=== PATIENT | female | born 1995 | race Caucasian/White ===

== ENCOUNTER 2020-05-16 10:43 | Observation (INO) ==
[2020-05-16] MEDS ORDERED: LACTATED RINGER'S 500 ML IV ONE (11:47)
[2020-05-16 12:19] LABS: Basophils # (auto) 0.01 K/uL (0-0.2); Basophils % (auto) 0.1 %; Eosinophils # (auto) 0.04 K/uL (0-0.5); Eosinophils % (auto) 0.4 %; Hematocrit (blood only) 32.3 % (37-47); Hemoglobin 10.2 g/dL (12.0-16.0); Immature Granulocytes # (auto) 0.06 K/uL (0.00-0.02); Immature Granulocytes % (auto) 0.6 %; Lymphocytes # (auto) 1.41 K/uL (1.2-3.4); Lymphocytes % (auto) 14.3 %; Mean Corpuscular Hemoglobin 25.3 pg (25-34); Mean Corpuscular Hgb Conc 31.6 g/dL (32-36); Mean Corpuscular Volume 80.1 fL (80-100); Mean Platelet Volume 10.5 fL (7.4-10.4); Monocytes # (auto) 0.66 K/uL (0.11-0.59); Monocytes % (auto) 6.7 %; Neutrophils # (auto) 7.69 K/uL (1.4-6.5); Neutrophils % (auto) 77.9 %; Platelet Count 185 K/uL (130-400); RDW Coefficient of Variation 15.5 % (11.5-14.5); RDW Standard Deviation 45.9 fL (36.4-46.3); Red Blood Count 4.03 M/uL (4.2-5.4); White Blood Count 9.87 K/uL (4.8-10.8)
[2020-05-16] MEDS ORDERED: TERBUTALINE SULFATE 1 MG/ML VIAL SQ ONE ×2 (12:56→13:58)
[2020-05-16] MEDS ORDERED: BETAMETH SOD PHOS/ACETATE IA 6 MG/ML IM STA (13:58)
[2020-05-16 14:44] LABS: Appearance Urine Clear (Clear); Bilirubin Urine Negative (Negative); Blood Urine Negative (Negative); Color Urine Yellow; Glucose Urine UA Negative (Negative); Ketones Urine 1+ (Negative); Leukocyte Esterase Urine Negative (Negative); Nitrite Urine Negative (Negative); Protein Urine Negative (Negative); Specific Gravity Urine 1.007 (1.000-1.030); Urobilinogen Urine Negative (Negative)
[2020-05-16] MEDS ORDERED: MAG SULFATE 4GM BOLUS FROM BAG IV ONE (15:02)
--- NOTE | 2020-05-16 15:32 | Progress Note ---
Date of Service May 16, 2020 Subjective Pt is s/p twin gestation @ 33 + weeks seen in the office for ctx sent to L&D for eval On arrival FHR was CAT1 x2 ctx 2-3min VE' closed/ no effacement /post Pt received IVH, followed by 2 doses of Turb. pt continues to ctx discussed magnesium and BMTX with pt pt has agreed Results & Data ([facility]) Vital Signs (Past 12 Hours) Vital Signs Temp Pulse Resp BP 05/16/20 14:29 100 H 108/65 05/16/20 11:07 36.9 C 20
[2020-05-16] MEDS: MAGNESIUM SULFATE / WTR 40 GM/1,000 ML BAG IV SCH (15:33)
[2020-05-16 15:51] LABS: Albumin Globulin Ratio 0.5 (0.9-2); Albumin Level 2.2 gm/dl (3.4-5.0); BUN Creatinine Ratio 6.4 (10-20); Bilirubin,Total 0.4 mg/dl (0.2-1); Calcium 8.7 mg/dl (8.5-10.1); Creatinine Clr Calc Pharmacy 113.4 ml/min; Est GFR (African American) 141.5; Est GFR (Non-African American) 122.1; Globulin 4.2 gm/dl (2.5-4.0); Potassium 2.6 mmol/L (3.5-5.1); Total Protein 6.4 gm/dl (6.4-8.2)
[2020-05-16] MEDS: LACTATED RINGER'S 1,000 ML IV PRN (15:53)
--- NOTE | 2020-05-16 19:43 | Progress Note ---
Date of Service May 16, 2020 Subjective Improved ctx on magnesium Pt received 1st dose of BMTX plan continue magnesium for 24 hrs 2nd dose of BMTx will be given 24hr after 1st Results & Data ([facility]) Vital Signs (Past 12 Hours) Vital Signs Temp Pulse Resp BP 05/16/20 19:03 36.8 C 18 05/16/20 18:56 104 H 110/69 05/16/20 18:32 20 05/16/20 17:56 116 H 129/77 05/16/20 17:39 110 H 128/80 05/16/20 17:30 20 05/16/20 17:23 120 H 110/58 L 05/16/20 17:10 115 H 119/71 05/16/20 16:55 118 H 120/68 05/16/20 16:39 125 H 113/74 05/16/20 16:30 20 05/16/20 16:24 122 H 122/73 05/16/20 16:08 120 H 114/67 05/16/20 15:53 129 H 115/75 05/16/20 15:39 120 H 121/79 05/16/20 15:35 115 H 108/66 05/16/20 15:00 36.9 C 20 05/16/20 14:29 100 H 108/65 05/16/20 11:07 36.9 C 20
[2020-05-17] MEDS ORDERED: MAG SULFATE 4GM BOLUS FROM BAG IV ONE (02:43)
--- NOTE | 2020-05-17 02:47 | Progress Note ---
Date of Service May 17, 2020 Assessment & Plan Admission and Anticipated Discharge Date Admission Date: May 16, 2020 Subjective Pt has sudden increase in ctx FHR 'CAT1 VE; Unchanged will give magnesium bolus discussed with pt pt agrees Results & Data ([facility]) Vital Signs (Past 12 Hours) Vital Signs Temp Pulse Resp BP Pulse Ox 05/17/20 02:43 108 H 100 05/17/20 02:38 100 H 100 05/17/20 02:33 94 H 100 05/17/20 02:30 18 05/17/20 02:28 98 H 100 05/17/20 02:23 100 H 100 05/17/20 02:19 114 H 93 05/17/20 02:18 113 H 99 05/17/20 02:13 102 H 99 05/17/20 02:08 102 H 100 05/17/20 02:03 102 H 100 05/17/20 02:00 18 05/17/20 01:58 103 H 100 05/17/20 01:57 98 H 113/71 05/17/20 01:53 100 H 100 05/17/20 01:48 109 H 100 05/17/20 01:43 106 H 100 05/17/20 01:38 108 H 100 05/17/20 01:35 108 H 91 05/17/20 01:33 105 H 100 05/17/20 01:30 18 05/17/20 01:28 109 H 100 05/17/20 01:23 103 H 100 05/17/20 01:18 98 H 100 05/17/20 01:13 98 H 100 05/17/20 01:08 102 H 100 05/17/20 01:03 115 H 100 05/17/20 01:00 18 05/17/20 00:58 105 H 100 05/17/20 00:57 96 H 117/65 05/17/20 00:53 112 H 100 05/17/20 00:48 109 H 99 05/17/20 00:43 107 H 100 05/17/20 00:38 109 H 100 05/17/20 00:33 101 H 100 05/17/20 00:30 18 05/17/20 00:28 103 H 100 05/17/20 00:23 109 H 100 05/17/20 00:18 106 H 99 05/17/20 00:13 110 H 99 05/17/20 00:08 114 H 98 05/17/20 00:03 103 H 98 05/17/20 00:00 18 05/16/20 23:58 103 H 100 05/16/20 23:57 100 H 99/63 L 05/16/20 23:53 103 H 100 05/16/20 23:48 105 H 100 05/16/20 23:43 114 H 99 05/16/20 23:38 116 H 99 05/16/20 23:33 108 H 98 05/16/20 23:30 18 05/16/20 23:28 105 H 98 05/16/20 23:23 105 H 97 05/16/20 23:18 119 H 97 05/16/20 23:13 111 H 95 05/16/20 23:08 110 H 95 05/16/20 23:03 111 H 96 05/16/20 23:00 18 05/16/20 22:58 112 H 97 05/16/20 22:57 120 H 107/62 05/16/20 22:53 110 H 96 05/16/20 22:48 108 H 96 05/16/20 22:43 110 H 96 05/16/20 22:38 107 H 96 05/16/20 22:33 111 H 96 05/16/20 22:30 18 05/16/20 22:28 108 H 97 05/16/20 22:23 112 H 100 05/16/20 22:18 106 H 99 05/16/20 22:13 102 H 100 05/16/20 22:08 109 H 99 05/16/20 22:03 112 H 100 05/16/20 22:00 18 05/16/20 21:57 110 H 119/72 05/16/20 21:00 18 05/16/20 20:56 125 H 126/79 05/16/20 20:30 18 05/16/20 20:00 18 05/16/20 19:57 114 H 117/65 05/16/20 19:03 36.8 C 18 05/16/20 18:56 104 H 110/69 05/16/20 18:32 20 05/16/20 17:56 116 H 129/77 05/16/20 17:39 110 H 128/80 05/16/20 17:30 20 05/16/20 17:23 120 H 110/58 L 05/16/20 17:10 115 H 119/71 05/16/20 16:55 118 H 120/68 05/16/20 16:39 125 H 113/74 05/16/20 16:30 20 05/16/20 16:24 122 H 122/73 05/16/20 16:08 120 H 114/67 05/16/20 15:53 129 H 115/75 05/16/20 15:39 120 H 121/79 05/16/20 15:35 115 H 108/66 05/16/20 15:00 36.9 C 20
[2020-05-17] MEDS: MAGNESIUM SULFATE / WTR 40 GM/1,000 ML BAG IV SCH (08:50)
--- NOTE | 2020-05-17 09:19 | Obstetrical Progress Note ---
Date of Service May 17, 2020 Assessment & Plan Admission and Anticipated Discharge Date Admission Date: May 16, 2020 Subjective Patient is reevaluated. She is a 25-year-o-0-0-2 G3 at 33 weeks and 6 days with di-di twins ( surrogate mother) who was admitted yesterday by Dr. Leal for uterine contractions. Unable to stop ctxs with Terbutaline and was started on IV Magnesium. She received a bolus of 4 gr at 2 am this morning for recurrent ctxs and they stopped since then. She has received first dose of Celestone on yesterday afternoon. Her cervix remained the same, ft, thick, high She has no complaints now. She denies contractions, leakage of fluids, vaginal bleeding, chest pain, shortness of breath, double or blurry vision. She feels good movements. heart rate had been reactive for each babies. No regular contractions on the monitor except there are increased activities on toco when she was sitting up. Vital Signs Temp Pulse Resp BP Pulse Ox 05/17/20 09:08 115 H 100 05/17/20 09:06 113 H 117/79 05/17/20 09:03 109 H 100 05/17/20 08:58 105 H 100 05/17/20 08:53 112 H 100 05/17/20 08:51 117 H 93 05/17/20 08:48 110 H 100 05/17/20 08:43 105 H 100 05/17/20 08:38 109 H 100 05/17/20 08:33 110 H 100 05/17/20 08:28 104 H 100 05/17/20 08:23 111 H 100 05/17/20 08:18 111 H 100 05/17/20 08:13 104 H 100 05/17/20 08:08 97 H 100 05/17/20 08:06 36.8 C 104 H 20 111/75 05/17/20 08:04 100 H 92 05/17/20 08:03 99 H 94 05/17/20 07:58 91 H 100 05/17/20 07:53 105 H 100 05/17/20 07:52 111 H 88 L 05/17/20 07:48 105 H 100 05/17/20 07:47 102 H 92 05/17/20 07:43 99 H 100 05/17/20 07:38 116 H 99 05/17/20 07:33 109 H 97 05/17/20 07:28 103 H 98 05/17/20 07:23 109 H 98 05/17/20 07:18 109 H 96 05/17/20 07:13 102 H 95 05/17/20 07:12 101 H 94 05/17/20 07:08 104 H 95 05/17/20 07:06 100 H 106/62 05/17/20 07:03 105 H 95 05/17/20 07:00 18 05/17/20 06:58 105 H 95 05/17/20 06:54 97 H 94 05/17/20 06:53 105 H 95 05/17/20 06:48 110 H 98 05/17/20 06:43 100 H 96 05/17/20 06:38 102 H 95 05/17/20 06:33 103 H 95 05/17/20 06:30 18 05/17/20 06:28 107 H 96 05/17/20 06:23 108 H 96 05/17/20 06:20 102 H 94 05/17/20 06:18 106 H 96 05/17/20 06:13 107 H 96 05/17/20 06:08 100 H 96 05/17/20 06:07 89 103/63 05/17/20 06:03 99 H 97 05/17/20 06:00 18 05/17/20 05:58 110 H 97 05/17/20 05:53 102 H 97 05/17/20 05:48 98 H 96 05/17/20 05:43 96 H 97 05/17/20 05:38 97 H 97 05/17/20 05:33 100 H 97 05/17/20 05:30 18 05/17/20 05:28 93 H 97 05/17/20 05:23 96 H 98 05/17/20 05:18 91 H 100 05/17/20 05:13 94 H 100 05/17/20 05:08 108 H 95 05/17/20 05:06 105 H 117/58 L 05/17/20 05:03 100 H 97 05/17/20 05:00 16 05/17/20 04:58 93 H 96 05/17/20 04:53 95 H 96 05/17/20 04:51 95 H 108/69 05/17/20 04:48 95 H 97 05/17/20 04:43 107 H 98 05/17/20 04:38 101 H 98 05/17/20 04:35 106 H 116/70 05/17/20 04:33 104 H 97 05/17/20 04:28 104 H 96 05/17/20 04:23 97 H 97 05/17/20 04:20 94 H 102/59 L 05/17/20 04:18 99 H 98 05/17/20 04:13 98 H 98 05/17/20 04:08 98 H 98 05/17/20 04:05 98 H 110/69 05/17/20 04:03 100 H 99 05/17/20 04:00 18 05/17/20 03:58 102 H 97 05/17/20 03:53 106 H 97 05/17/20 03:50 106 H 103/60 05/17/20 03:48 107 H 99 05/17/20 03:43 101 H 97 05/17/20 03:38 98 H 96 05/17/20 03:37 101 H 100/59 L 05/17/20 03:33 106 H 97 05/17/20 03:30 18 05/17/20 03:28 101 H 98 05/17/20 03:23 103 H 99 05/17/20 03:20 97 H 104/56 L 05/17/20 03:18 99 H 100 05/17/20 03:15 18 05/17/20 03:13 101 H 100 05/17/20 03:08 103 H 99 05/17/20 03:05 92 H 112/71 05/17/20 03:03 106 H 98 05/17/20 03:00 18 05/17/20 02:58 105 H 99 05/17/20 02:53 104 H 99 05/17/20 02:52 102 H 103/63 05/17/20 02:48 109 H 99 05/17/20 02:43 108 H 100 05/17/20 02:38 100 H 100 05/17/20 02:33 94 H 100 05/17/20 02:30 18 05/17/20 02:28 98 H 100 05/17/20 02:23 100 H 100 05/17/20 02:19 114 H 93 05/17/20 02:18 113 H 99 05/17/20 02:13 102 H 99 05/17/20 02:08 102 H 100 05/17/20 02:03 102 H 100 05/17/20 02:00 18 05/17/20 01:58 103 H 100 05/17/20 01:57 98 H 113/71 05/17/20 01:53 100 H 100 05/17/20 01:48 109 H 100 05/17/20 01:43 106 H 100 05/17/20 01:38 108 H 100 05/17/20 01:35 108 H 91 05/17/20 01:33 105 H 100 05/17/20 01:30 18 05/17/20 01:28 109 H 100 05/17/20 01:23 103 H 100 05/17/20 01:18 98 H 100 05/17/20 01:13 98 H 100 05/17/20 01:08 102 H 100 05/17/20 01:03 115 H 100 05/17/20 01:00 18 05/17/20 00:58 105 H 100 05/17/20 00:57 96 H 117/65 05/17/20 00:53 112 H 100 05/17/20 00:48 109 H 99 05/17/20 00:43 107 H 100 05/17/20 00:38 109 H 100 05/17/20 00:33 101 H 100 05/17/20 00:30 18 05/17/20 00:28 103 H 100 05/17/20 00:23 109 H 100 05/17/20 00:18 106 H 99 05/17/20 00:13 110 H 99 05/17/20 00:08 114 H 98 05/17/20 00:03 103 H 98 05/17/20 00:00 18 05/16/20 23:58 103 H 100 05/16/20 23:57 100 H 99/63 L 05/16/20 23:53 103 H 100 05/16/20 23:48 105 H 100 05/16/20 23:43 114 H 99 05/16/20 23:38 116 H 99 05/16/20 23:33 108 H 98 05/16/20 23:30 18 05/16/20 23:28 105 H 98 05/16/20 23:23 105 H 97 05/16/20 23:18 119 H 97 05/16/20 23:13 111 H 95 05/16/20 23:08 110 H 95 05/16/20 23:03 111 H 96 05/16/20 23:00 18 05/16/20 22:58 112 H 97 05/16/20 22:57 120 H 107/62 05/16/20 22:53 110 H 96 05/16/20 22:48 108 H 96 05/16/20 22:43 110 H 96 05/16/20 22:38 107 H 96 05/16/20 22:33 111 H 96 05/16/20 22:30 18 05/16/20 22:28 108 H 97 05/16/20 22:23 112 H 100 05/16/20 22:18 106 H 99 05/16/20 22:13 102 H 100 05/16/20 22:08 109 H 99 05/16/20 22:03 112 H 100 05/16/20 22:00 18 05/16/20 21:57 110 H 119/72 Intake & Output 05/16/20 05/17/20 05/17/20 22:59 06:59 14:59 Intake Total 705.833 / 2005.417 883.334 / 2005.417 116.666 / 116.666 Output Total 3150 / 7125 3825 / 7125 150 / 150 Balance -2444.167 / -5119.583 -2941.666 / -5119.583 -33.334 / -33.334 Intake: IV 705.833 / 2005.417 883.334 / 2005.417 116.666 / 116.666 Lr 1,000 ml @ 50 mls/hr IV . 305.833 / 705.833 400 / 705.833 Q20H PRN Rx#:[id number] MAGNESIUM SULFATE / WTR 40 gm 400.000 / 883.334 483.334 / 883.334 116.666 / 116.666 In 1,000 ml @ 50 mls/hr IV . Q20H JOHNSON Rx#:[id number] Output: Urine 1300 / 1300 Urine Amount (Catheter) 1850 / 5825 3825 / 5825 150 / 150 Hansen/Indwelling 185 / 5825 3825 / 5825 150 / 150 Lab Results 03/10/2905/16/20 05/16/20 Range/Units 12:04 14:25 15:13 WBC 9.87 (4.8-10.8) K/uL RBC 4.03 L (4.2-5.4) M/uL Hgb 10.2 L (12.0-16.0) g/dL Hct 32.3 L (37-47) % MCV 80.1 (80-100) fL MCH 25.3 (25-34) pg MCHC 31.6 L (32-36) g/dL RDW Std Deviation 45.9 (36.4-46.3) fL RDW Coeff of [place] 15.5 H (11.5-14.5) % Plt Count 185 (130-400) K/uL MPV 10.5 H (7.4-10.4) fL Immature Gran % (Auto) 0.6 % Neut % (Auto) 77.9 % Lymph % (Auto) 14.3 % [place] % (Auto) 6.7 % Eos % (Auto) 0.4 % Baso % (Auto) 0.1 % Neut # (Auto) 7.69 H (1.4-6.5) K/uL Lymph # (Auto) 1.41 (1.2-3.4) K/uL [place] # (Auto) 0.66 H (0.11-0.59) K/uL Eos # (Auto) 0.04 (0-0.5) K/uL Baso # (Auto) 0.01 (0-0.2) K/uL Immature Gran # (Auto) 0.06 H (0.00-0.02) K/uL Sodium 136 (136-145) mmol/L Potassium 2.6 L (3.5-5.1) mmol/L Chloride 104 (98-107) mmol/L Carbon Dioxide 18 L (21-32) mmol/L Anion Gap 14.0 H (3-11) BUN 5 L (7-18) mg/dl Creatinine 0.70 (0.6-1.2) mg/dl Est Cr Clr Drug Dosing 113.4 ml/min Est GFR ( Amer) 141.5 Est GFR (Non-Af Amer) 122.1 BUN/Creatinine Ratio 6.4 L (10-20) Glucose 138 H (70-99) mg/dl Calcium 8.7 (8.5-10.1) mg/dl Magnesium (1.8-2.4) mg/dl Total Bilirubin 0.4 (0.2-1) mg/dl AST 14 L (15-37) U/L ALT 12 (12-78) U/L Alkaline Phosphatase 254 H (45-117) U/L Total Protein 6.4 (6.4-8.2) gm/dl Albumin 2.2 L (3.4-5.0) gm/dl Globulin 4.2 H (2.5-4.0) gm/dl Albumin/Globulin Ratio 0.5 L (0.9-2) Urine Color Yellow Urine Appearance Clear (Clear) Urine pH 7.0 (4.5-7.5) Ur Specific [place] 1.007 (1.000-1.030) Urine Protein Negative (Negative) Urine Glucose (UA) Negative (Negative) Urine Ketones 1+ H (Negative) Urine Blood Negative (Negative) Urine Nitrite Negative (Negative) Urine Bilirubin Negative (Negative) Urine Urobilinogen Negative (Negative) Ur Leukocyte Esterase Negative (Negative) 05/17/20 Range/Units 07:43 WBC (4.8-10.8) K/uL RBC (4.2-5.4) M/uL Hgb (12.0-16.0) g/dL Hct (37-47) % MCV (80-100) fL MCH (25-34) pg MCHC (32-36) g/dL RDW Std Deviation (36.4-46.3) fL RDW Coeff of [place] (11.5-14.5) % Plt Count (130-400) K/uL MPV (7.4-10.4) fL Immature Gran % (Auto) % Neut % (Auto) % Lymph % (Auto) % [place] % (Auto) % Eos % (Auto) % Baso % (Auto) % Neut # (Auto) (1.4-6.5) K/uL Lymph # (Auto) (1.2-3.4) K/uL [place] # (Auto) (0.11-0.59) K/uL Eos # (Auto) (0-0.5) K/uL Baso # (Auto) (0-0.2) K/uL Immature Gran # (Auto) (0.00-0.02) K/uL Sodium (136-145) mmol/L Potassium (3.5-5.1) mmol/L Chloride (98-107) mmol/L Carbon Dioxide (21-32) mmol/L Anion Gap (3-11) BUN (7-18) mg/dl Creatinine (0.6-1.2) mg/dl Est Cr Clr Drug Dosing ml/min Est GFR ( Amer) Est GFR (Non-Af Amer) BUN/Creatinine Ratio (10-20) Glucose (70-99) mg/dl Calcium (8.5-10.1) mg/dl Magnesium 5.7 H* (1.8-2.4) mg/dl Total Bilirubin (0.2-1) mg/dl AST (15-37) U/L ALT (12-78) U/L Alkaline Phosphatase (45-117) U/L Total Protein (6.4-8.2) gm/dl Albumin (3.4-5.0) gm/dl Globulin (2.5-4.0) gm/dl Albumin/Globulin Ratio (0.9-2) Urine Color Urine Appearance (Clear) Urine pH (4.5-7.5) Ur Specific [place] (1.000-1.030) Urine Protein (Negative) Urine Glucose (UA) (Negative) Urine Ketones (Negative) Urine Blood (Negative) Urine Nitrite (Negative) Urine Bilirubin (Negative) Urine Urobilinogen (Negative) Ur Leukocyte Esterase (Negative) Bed side US was done by myself: Baby A on maternal left, breech, FHR 150's Baby B on maternal right and high, oblique FHR 145 Discussed 2nd dose of Celestone this afternoon and observation with tocolysis till tomorrow afternoon until steroid benefit vs switching to PO Procardia this afternonn and d/c home on it She prefers d/c this afternoon. All questions were answered. Results & Data ([facility]) Vital Signs (Past 12 Hours) Vital Signs Temp Pulse Resp BP Pulse Ox 05/17/20 09:08 115 H 100 05/17/20 09:06 113 H 117/79 05/17/20 09:03 109 H 100 05/17/20 08:58 105 H 100 05/17/20 08:53 112 H 100 05/17/20 08:51 117 H 93 05/17/20 08:48 110 H 100 05/17/20 08:43 105 H 100 05/17/20 08:38 109 H 100 05/17/20 08:33 110 H 100 05/17/20 08:28 104 H 100 05/17/20 08:23 111 H 100 05/17/20 08:18 111 H 100 05/17/20 08:13 104 H 100 05/17/20 08:08 97 H 100 05/17/20 08:06 36.8 C 104 H 20 111/75 05/17/20 08:04 100 H 92 05/17/20 08:03 99 H 94 05/17/20 07:58 91 H 100 05/17/20 07:53 105 H 100 05/17/20 07:52 111 H 88 L 05/17/20 07:48 105 H 100 05/17/20 07:47 102 H 92 05/17/20 07:43 99 H 100 05/17/20 07:38 116 H 99 05/17/20 07:33 109 H 97 05/17/20 07:28 103 H 98 05/17/20 07:23 109 H 98 05/17/20 07:18 109 H 96 05/17/20 07:13 102 H 95 05/17/20 07:12 101 H 94 05/17/20 07:08 104 H 95 05/17/20 07:06 100 H 106/62 05/17/20 07:03 105 H 95 05/17/20 07:00 18 05/17/20 06:58 105 H 95 05/17/20 06:54 97 H 94 05/17/20 06:53 105 H 95 05/17/20 06:48 110 H 98 05/17/20 06:43 100 H 96 05/17/20 06:38 102 H 95 05/17/20 06:33 103 H 95 05/17/20 06:30 18 05/17/20 06:28 107 H 96 05/17/20 06:23 108 H 96 05/17/20 06:20 102 H 94 05/17/20 06:18 106 H 96 05/17/20 06:13 107 H 96 05/17/20 06:08 100 H 96 05/17/20 06:07 89 103/63 05/17/20 06:03 99 H 97 03/09/21 06:00 18 05/17/20 05:58 110 H 97 05/17/20 05:53 102 H 97 05/17/20 05:48 98 H 96 05/17/20 05:43 96 H 97 05/17/20 05:38 97 H 97 05/17/20 05:33 100 H 97 05/17/20 05:30 18 05/17/20 05:28 93 H 97 05/17/20 05:23 96 H 98 05/17/20 05:18 91 H 100 05/17/20 05:13 94 H 100 05/17/20 05:08 108 H 95 05/17/20 05:06 105 H 117/58 L 05/17/20 05:03 100 H 97 05/17/20 05:00 16 05/17/20 04:58 93 H 96 05/17/20 04:53 95 H 96 05/17/20 04:51 95 H 108/69 05/17/20 04:48 95 H 97 05/17/20 04:43 107 H 98 05/17/20 04:38 101 H 98 05/17/20 04:35 106 H 116/70 05/17/20 04:33 104 H 97 05/17/20 04:28 104 H 96 05/17/20 04:23 97 H 97 05/17/20 04:20 94 H 102/59 L 05/17/20 04:18 99 H 98 05/17/20 04:13 98 H 98 05/17/20 04:08 98 H 98 05/17/20 04:05 98 H 110/69 05/17/20 04:03 100 H 99 05/17/20 04:00 18 05/17/20 03:58 102 H 97 05/17/20 03:53 106 H 97 05/17/20 03:50 106 H 103/60 05/17/20 03:48 107 H 99 05/17/20 03:43 101 H 97 05/17/20 03:38 98 H 96 05/17/20 03:37 101 H 100/59 L 05/17/20 03:33 106 H 97 05/17/20 03:30 18 05/17/20 03:28 101 H 98 05/17/20 03:23 103 H 99 05/17/20 03:20 97 H 104/56 L 05/17/20 03:18 99 H 100 05/17/20 03:15 18 05/17/20 03:13 101 H 100 05/17/20 03:08 103 H 99 05/17/20 03:05 92 H 112/71 05/17/20 03:03 106 H 98 05/17/20 03:00 18 05/17/20 02:58 105 H 99 05/17/20 02:53 104 H 99 05/17/20 02:52 102 H 103/63 05/17/20 02:48 109 H 99 05/17/20 02:43 108 H 100 05/17/20 02:38 100 H 100 05/17/20 02:33 94 H 100 05/17/20 02:30 18 05/17/20 02:28 98 H 100 05/17/20 02:23 100 H 100 05/17/20 02:19 114 H 93 05/17/20 02:18 113 H 99 05/17/20 02:13 102 H 99 05/17/20 02:08 102 H 100 05/17/20 02:03 102 H 100 05/17/20 02:00 18 05/17/20 01:58 103 H 100 05/17/20 01:57 98 H 113/71 05/17/20 01:53 100 H 100 05/17/20 01:48 109 H 100 05/17/20 01:43 106 H 100 05/17/20 01:38 108 H 100 05/17/20 01:35 108 H 91 05/17/20 01:33 105 H 100 05/17/20 01:30 18 05/17/20 01:28 109 H 100 05/17/20 01:23 103 H 100 05/17/20 01:18 98 H 100 05/17/20 01:13 98 H 100 05/17/20 01:08 102 H 100 05/17/20 01:03 115 H 100 05/17/20 01:00 18 05/17/20 00:58 105 H 100 05/17/20 00:57 96 H 117/65 05/17/20 00:53 112 H 100 05/17/20 00:48 109 H 99 05/17/20 00:43 107 H 100 05/17/20 00:38 109 H 100 05/17/20 00:33 101 H 100 05/17/20 00:30 18 05/17/20 00:28 103 H 100 05/17/20 00:23 109 H 100 05/17/20 00:18 106 H 99 05/17/20 00:13 110 H 99 05/17/20 00:08 114 H 98 05/17/20 00:03 103 H 98 05/17/20 00:00 18 05/16/20 23:58 103 H 100 05/16/20 23:57 100 H 99/63 L 05/16/20 23:53 103 H 100 05/16/20 23:48 105 H 100 05/16/20 23:43 114 H 99 05/16/20 23:38 116 H 99 05/16/20 23:33 108 H 98 05/16/20 23:30 18 05/16/20 23:28 105 H 98 05/16/20 23:23 105 H 97 05/16/20 23:18 119 H 97 05/16/20 23:13 111 H 95 05/16/20 23:08 110 H 95 05/16/20 23:03 111 H 96 05/16/20 23:00 18 05/16/20 22:58 112 H 97 05/16/20 22:57 120 H 107/62 05/16/20 22:53 110 H 96 05/16/20 22:48 108 H 96 05/16/20 22:43 110 H 96 05/16/20 22:38 107 H 96 05/16/20 22:33 111 H 96 05/16/20 22:30 18 05/16/20 22:28 108 H 97 05/16/20 22:23 112 H 100 05/16/20 22:18 106 H 99 05/16/20 22:13 102 H 100 05/16/20 22:08 109 H 99 05/16/20 22:03 112 H 100 05/16/20 22:00 18 05/16/20 21:57 110 H 119/72
[2020-05-17] MEDS: LACTATED RINGER'S 1,000 ML IV PRN (12:08)
[2020-05-17] MEDS ORDERED: BETAMETH SOD PHOS/ACETATE IA 6 MG/ML IM STA (14:11)
--- NOTE | 2020-05-17 15:09 | Obstetrical Progress Note ---
Date of Service May 17, 2020 Assessment & Plan Admission and Anticipated Discharge Date Admission Date: May 16, 2020 Subjective Patient fels well, no complaints No ctxs/ LOF/VB/ pressure +FM's x2 VSS Afebrile VE: 1-2 cm/ thick/ -3, posterior FHR reassuring [place]: no ctxs Received 2nd dose of Steroid now I spoke with Dr Leal who stated her exam was about the saem yesterday and this am I spoke with M, Osmin Do and [place] who recommended "off tocolytics and observe for another 24 hours for steroid benefit ( will be tomorrow afternoon) and d/c home tomorrow She agrees for above plan I offered her off work but she wants to think about it. All questions were answered Results & Data ([facility]) Vital Signs (Past 12 Hours) Vital Signs Temp Pulse Resp BP Pulse Ox 05/17/20 15:04 110 H 100 05/17/20 14:59 111 H 100 05/17/20 14:54 102 H 100 05/17/20 14:49 106 H 100 05/17/20 14:44 108 H 100 05/17/20 14:39 104 H 100 05/17/20 14:37 101 H 106/65 05/17/20 14:34 102 H 100 05/17/20 14:29 105 H 99 05/17/20 14:24 105 H 99 05/17/20 14:19 102 H 100 05/17/20 14:14 111 H 100 05/17/20 14:09 110 H 100 05/17/20 14:04 102 H 100 05/17/20 13:59 102 H 100 05/17/20 13:54 106 H 100 05/17/20 13:49 101 H 100 05/17/20 13:44 105 H 100 05/17/20 13:39 109 H 100 05/17/20 13:37 102 H 112/69 05/17/20 13:34 104 H 100 05/17/20 13:29 119 H 93 05/17/20 13:24 111 H 99 05/17/20 13:19 115 H 98 05/17/20 13:14 105 H 98 05/17/20 13:09 110 H 97 05/17/20 13:04 111 H 97 05/17/20 12:59 109 H 100 05/17/20 12:54 117 H 98 05/17/20 12:49 109 H 100 05/17/20 12:44 108 H 100 05/17/20 12:39 115 H 97 05/17/20 12:37 110 H 117/68 05/17/20 12:34 102 H 100 05/17/20 12:29 105 H 100 05/17/20 12:24 105 H 100 05/17/20 12:19 110 H 100 05/17/20 12:14 109 H 100 05/17/20 12:09 111 H 100 05/17/20 12:04 104 H 99 05/17/20 12:00 18 05/17/20 11:59 108 H 97 05/17/20 11:54 102 H 100 05/17/20 11:49 108 H 100 05/17/20 11:47 117 H 91 05/17/20 11:44 109 H 100 05/17/20 11:39 110 H 100 05/17/20 11:37 100 H 98/51 L 94 05/17/20 11:34 114 H 100 05/17/20 11:29 107 H 100 05/17/20 11:24 102 H 100 05/17/20 11:19 110 H 100 05/17/20 11:14 104 H 100 05/17/20 11:09 107 H 100 05/17/20 11:04 106 H 92 05/17/20 11:00 108 H 18 92 05/17/20 10:59 109 H 100 05/17/20 10:55 113 H 93 05/17/20 10:54 116 H 97 05/17/20 10:49 112 H 100 05/17/20 10:46 114 H 94 05/17/20 10:44 115 H 98 05/17/20 10:41 117 H 91 05/17/20 10:39 108 H 96 05/17/20 10:37 106 H 108/59 L 05/17/20 10:34 110 H 100 05/17/20 10:29 110 H 100 05/17/20 10:24 112 H 100 05/17/20 10:19 114 H 100 05/17/20 10:14 118 H 100 05/17/20 10:09 112 H 100 05/17/20 10:04 111 H 100 05/17/20 10:00 20 05/17/20 09:59 111 H 96 05/17/20 09:58 109 H 92 05/17/20 09:54 108 H 100 05/17/20 09:49 111 H 100 05/17/20 09:45 112 H 89 L 05/17/20 09:44 116 H 100 05/17/20 09:39 107 H 99 05/17/20 09:37 105 H 122/74 05/17/20 09:34 109 H 100 05/17/20 09:29 112 H 100 05/17/20 09:24 118 H 100 05/17/20 09:19 110 H 100 05/17/20 09:08 115 H 100 05/17/20 09:06 113 H 117/79 05/17/20 09:03 109 H 100 05/17/20 09:00 20 05/17/20 08:58 105 H 100 05/17/20 08:53 112 H 100 05/17/20 08:51 117 H 93 05/17/20 08:48 110 H 100 05/17/20 08:43 105 H 100 05/17/20 08:38 109 H 100 05/17/20 08:33 110 H 100 05/17/20 08:28 104 H 100 05/17/20 08:23 111 H 100 05/17/20 08:18 111 H 100 05/17/20 08:13 104 H 100 05/17/20 08:08 97 H 100 05/17/20 08:06 36.8 C 104 H 20 111/75 05/17/20 08:04 100 H 92 05/17/20 08:03 99 H 94 05/17/20 07:58 91 H 100 05/17/20 07:53 105 H 100 05/17/20 07:52 111 H 88 L 05/17/20 07:48 105 H 100 05/17/20 07:47 102 H 92 05/17/20 07:43 99 H 100 05/17/20 07:38 116 H 99 05/17/20 07:33 109 H 97 05/17/20 07:28 103 H 98 05/17/20 07:23 109 H 98 05/17/20 07:18 109 H 96 05/17/20 07:13 102 H 95 05/17/20 07:12 101 H 94 05/17/20 07:08 104 H 95 05/17/20 07:06 100 H 106/62 05/17/20 07:03 105 H 95 05/17/20 07:00 18 05/17/20 06:58 105 H 95 05/17/20 06:54 97 H 94 05/17/20 06:53 105 H 95 05/17/20 06:48 110 H 98 05/17/20 06:43 100 H 96 05/17/20 06:38 102 H 95 05/17/20 06:33 103 H 95 05/17/20 06:30 18 05/17/20 06:28 107 H 96 05/17/20 06:23 108 H 96 05/17/20 06:20 102 H 94 05/17/20 06:18 106 H 96 05/17/20 06:13 107 H 96 05/17/20 06:08 100 H 96 05/17/20 06:07 89 103/63 05/17/20 06:03 99 H 97 05/17/20 06:00 18 05/17/20 05:58 110 H 97 05/17/20 05:53 102 H 97 05/17/20 05:48 98 H 96 05/17/20 05:43 96 H 97 05/17/20 05:38 97 H 97 05/17/20 05:33 100 H 97 05/17/20 05:30 18 05/17/20 05:28 93 H 97 05/17/20 05:23 96 H 98 05/17/20 05:18 91 H 100 05/17/20 05:13 94 H 100 05/17/20 05:08 108 H 95 05/17/20 05:06 105 H 117/58 L 05/17/20 05:03 100 H 97 05/17/20 05:00 16 05/17/20 04:58 93 H 96 05/17/20 04:53 95 H 96 05/17/20 04:51 95 H 108/69 05/17/20 04:48 95 H 97 05/17/20 04:43 107 H 98 05/17/20 04:38 101 H 98 05/17/20 04:35 106 H 116/70 05/17/20 04:33 104 H 97 05/17/20 04:28 104 H 96 05/17/20 04:23 97 H 97 05/17/20 04:20 94 H 102/59 L 05/17/20 04:18 99 H 98 05/17/20 04:13 98 H 98 05/17/20 04:08 98 H 98 05/17/20 04:05 98 H 110/69 05/17/20 04:03 100 H 99 05/17/20 04:00 18 05/17/20 03:58 102 H 97 05/17/20 03:53 106 H 97 05/17/20 03:50 106 H 103/60 05/17/20 03:48 107 H 99 05/17/20 03:43 101 H 97 05/17/20 03:38 98 H 96 05/17/20 03:37 101 H 100/59 L 05/17/20 03:33 106 H 97 05/17/20 03:30 18 05/17/20 03:28 101 H 98 05/17/20 03:23 103 H 99 05/17/20 03:20 97 H 104/56 L 05/17/20 03:18 99 H 100 05/17/20 03:15 18 05/17/20 03:13 101 H 100 05/17/20 03:08 103 H 99
--- NOTE | 2020-05-17 17:11 | Obstetrical Progress Note ---
Date of Service May 17, 2020 Assessment & Plan Admission and Anticipated Discharge Date Admission Date: May 16, 2020 Subjective Patient is reevaluated Mag has been off since 14 47 She felt only 2 ctxs and stopped after she used the BR She is uncomfortable from belts Discussed Procardia She wants to off from tocolytics for now and see what happens Plan to be off EFM, NST q 2 hours, toco continuous and observe All questions were answered Results & Data ([facility]) Vital Signs (Past 12 Hours) Vital Signs Temp Pulse Resp BP Pulse Ox 05/17/20 16:30 16 05/17/20 16:22 109 H 113/70 05/17/20 15:30 16 05/17/20 15:15 36.8 C 16 05/17/20 15:11 98 H 111/62 05/17/20 15:09 105 H 100 05/17/20 15:04 110 H 100 05/17/20 15:00 20 05/17/20 14:59 111 H 100 05/17/20 14:54 102 H 100 05/17/20 14:49 106 H 100 05/17/20 14:44 108 H 100 05/17/20 14:39 104 H 100 05/17/20 14:37 101 H 106/65 05/17/20 14:34 102 H 100 05/17/20 14:29 105 H 99 05/17/20 14:24 105 H 99 05/17/20 14:19 102 H 100 05/17/20 14:14 111 H 100 05/17/20 14:09 110 H 100 05/17/20 14:04 102 H 100 05/17/20 14:00 20 05/17/20 13:59 102 H 100 05/17/20 13:54 106 H 100 05/17/20 13:49 101 H 100 05/17/20 13:44 105 H 100 05/17/20 13:39 109 H 100 05/17/20 13:37 102 H 112/69 05/17/20 13:34 104 H 100 05/17/20 13:29 119 H 93 05/17/20 13:24 111 H 99 05/17/20 13:19 115 H 98 05/17/20 13:14 105 H 98 05/17/20 13:09 110 H 97 05/17/20 13:04 111 H 97 05/17/20 13:00 20 05/17/20 12:59 109 H 100 05/17/20 12:54 117 H 98 05/17/20 12:49 109 H 100 05/17/20 12:44 108 H 100 05/17/20 12:39 115 H 97 05/17/20 12:37 110 H 117/68 05/17/20 12:34 102 H 100 05/17/20 12:29 105 H 100 05/17/20 12:24 105 H 100 05/17/20 12:19 110 H 100 05/17/20 12:14 109 H 100 05/17/20 12:09 111 H 100 05/17/20 12:04 104 H 99 05/17/20 12:00 18 05/17/20 11:59 108 H 97 05/17/20 11:54 102 H 100 05/17/20 11:49 108 H 100 05/17/20 11:47 117 H 91 05/17/20 11:44 109 H 100 05/17/20 11:39 110 H 100 05/17/20 11:37 100 H 98/51 L 94 05/17/20 11:34 114 H 100 05/17/20 11:29 107 H 100 05/17/20 11:24 102 H 100 05/17/20 11:19 110 H 100 05/17/20 11:14 104 H 100 05/17/20 11:09 107 H 100 05/17/20 11:04 106 H 92 05/17/20 11:00 108 H 20 92 05/17/20 10:59 109 H 100 05/17/20 10:55 113 H 93 05/17/20 10:54 116 H 97 05/17/20 10:49 112 H 100 05/17/20 10:46 114 H 94 05/17/20 10:44 115 H 98 05/17/20 10:41 117 H 91 05/17/20 10:39 108 H 96 05/17/20 10:37 106 H 108/59 L 05/17/20 10:34 110 H 100 05/17/20 10:29 110 H 100 05/17/20 10:24 112 H 100 05/17/20 10:19 114 H 100 05/17/20 10:14 118 H 100 05/17/20 10:09 112 H 100 03/09/21 10:04 111 H 100 05/17/20 10:00 20 05/17/20 09:59 111 H 96 05/17/20 09:58 109 H 92 05/17/20 09:54 108 H 100 05/17/20 09:49 111 H 100 05/17/20 09:45 112 H 89 L 05/17/20 09:44 116 H 100 05/17/20 09:39 107 H 99 05/17/20 09:37 105 H 122/74 05/17/20 09:34 109 H 100 05/17/20 09:29 112 H 100 05/17/20 09:24 118 H 100 05/17/20 09:19 110 H 100 05/17/20 09:08 115 H 100 05/17/20 09:06 113 H 117/79 05/17/20 09:03 109 H 100 05/17/20 09:00 20 05/17/20 08:58 105 H 100 05/17/20 08:53 112 H 100 05/17/20 08:51 117 H 93 05/17/20 08:48 110 H 100 05/17/20 08:43 105 H 100 05/17/20 08:38 109 H 100 05/17/20 08:33 110 H 100 05/17/20 08:28 104 H 100 05/17/20 08:23 111 H 100 05/17/20 08:18 111 H 100 05/17/20 08:13 104 H 100 05/17/20 08:08 97 H 100 05/17/20 08:06 36.8 C 104 H 20 111/75 05/17/20 08:04 100 H 92 05/17/20 08:03 99 H 94 05/17/20 07:58 91 H 100 05/17/20 07:53 105 H 100 05/17/20 07:52 111 H 88 L 05/17/20 07:48 105 H 100 05/17/20 07:47 102 H 92 05/17/20 07:43 99 H 100 05/17/20 07:38 116 H 99 05/17/20 07:33 109 H 97 05/17/20 07:28 103 H 98 05/17/20 07:23 109 H 98 05/17/20 07:18 109 H 96 05/17/20 07:13 102 H 95 05/17/20 07:12 101 H 94 05/17/20 07:08 104 H 95 05/17/20 07:06 100 H 106/62 05/17/20 07:03 105 H 95 05/17/20 07:00 18 05/17/20 06:58 105 H 95 05/17/20 06:54 97 H 94 05/17/20 06:53 105 H 95 05/17/20 06:48 110 H 98 05/17/20 06:43 100 H 96 05/17/20 06:38 102 H 95 05/17/20 06:33 103 H 95 05/17/20 06:30 18 05/17/20 06:28 107 H 96 05/17/20 06:23 108 H 96 05/17/20 06:20 102 H 94 05/17/20 06:18 106 H 96 05/17/20 06:13 107 H 96 05/17/20 06:08 100 H 96 05/17/20 06:07 89 103/63 05/17/20 06:03 99 H 97 05/17/20 06:00 18 05/17/20 05:58 110 H 97 05/17/20 05:53 102 H 97 05/17/20 05:48 98 H 96 05/17/20 05:43 96 H 97 05/17/20 05:38 97 H 97 05/17/20 05:33 100 H 97 05/17/20 05:30 18 05/17/20 05:28 93 H 97 05/17/20 05:23 96 H 98 05/17/20 05:18 91 H 100 05/17/20 05:13 94 H 100
[2020-05-17] MEDS: LACTATED RINGER'S 1,000 ML IV SCH (23:12)
[2020-05-18] MEDS: LACTATED RINGER'S 1,000 ML IV SCH (07:25)
[2020-05-18] MEDS ORDERED: FERROUS SULFATE 325 MG TAB PO SCH (07:30)
[2020-05-18] MEDS ORDERED: ACETAMINOPHEN 325 MG TAB PO PRN (07:44)
[2020-05-18] MEDS ORDERED: PRENATAL VITAMIN 1 TAB PO SCH (09:00)
--- NOTE | 2020-05-18 10:41 | Obstetrical Progress Note ---
Date of Service May 18, 2020 Assessment & Plan Admission and Anticipated Discharge Date Admission Date: May 16, 2020 Subjective Doing well no problems no further contractions Physical Exam Constitutional: WD/WN, vitals as above well developed and comfortable Genitourinary: OB Exam Monitor Tracing: + external FHT monitor used, + external uterine monitor used, + category I and + normal FHT variability FHT Cat 1 A/B Results & Data ([facility]) Vital Signs (Past 12 Hours) Vital Signs Temp Pulse Resp BP 05/18/20 07:45 20 05/18/20 07:34 36.8 C 105 H 20 102/56 L 05/18/20 05:18 36.6 C 97 H 18 101/54 L 05/17/20 23:15 107 H 105/56 L
--- NOTE | 2020-05-24 11:26 | Discharge Summary (DS) ---
REASON FOR ADMISSION AND HOSPITAL COURSE: The patient is a 25-year-old female, para 2-0-0-2, admitted on 05/18/2000 for labor that started when the patient was 36 weeks and 6 days. She is with di/di twins currently both are breech. She was seen in the office and noted to have contractions on monitor, sent over to labor and delivery for prolonged monitoring. The patient received 2 doses of terbutaline and was placed on magnesium and had betamethasone x2. Her cervix remained at fingertip, thick, and high. She was stable otherwise, category 1 strip for baby A and baby B. Her contractions stopped without any further contractions or any bleeding and she was discharged home 05/18/2020 in stable condition. Follow up will be in the office. She is continuing IV hydration and p.o. hydration and will be on p.o. fluids and bed rest for the next several days until stable. Limited activity with lifting and activity as noted. Regular diet on discharge. CONDITION ON DISCHARGE: Stable. FINAL DISCHARGE DIAGNOSIS: twin gestation, di/di placentation and breech presentation.
== END 2020-05-18 13:30 | disposition home or self-care (01) ==
LOC: 4S1 10:43 → OPB 10:43 → 4S1 11:00